=== PATIENT | female | born 1970 | race Caucasian/White ===

== ENCOUNTER 2019-01-26 19:24 | Emergency (ER) | payer MEDICARE ==
[~2019-01-26 19:24] MED LIST: ISOVUE-370 76%-LOCM 1 ML ONE
--- NOTE | 2019-01-26 19:50 | RAD ---
TWO VIEW CHEST: 01/26/19 HISTORY: Chest pain. Lung gordon are clear. Heart and mediastinum unremarkable. IMPRESSION: No acute findings. POS: [facility]
[2019-01-26 19:59] LABS: #Basophils 0.1 thou/uL (0.0-0.2); #Eosinphils 0.2 thou/uL (0.0-0.7); #Lymphocytes 2.4 thou/uL (1.20-3.40); #Monocytes 0.5 thou/uL (0.11-0.59); #Neutrophils 5.5 thou/uL (1.40-6.50); %Basophils 0.7 % (0.0-1.0); %Eosinophils 2.6 % (0.0-10.0); %Lymphocytes 28.1 % (21.0-51.0); %Monocytes 5.3 % (0.0-10.0); %Neutrophils 63.4 % (42.0-75.0); Hemoglobin 13.2 g/dL (12.0-16.0); Mean Corpuscular HGB CONC 32.7 g/dL (32.0-36.0); Mean Corpuscular Hemoglobin 31.2 pg (27.0-31.0); Mean Corpuscular Volume 95.4 fL (78.0-98.0); Mean Platelet Volume 9.6 fL (7.4-10.4); Platelet Count 264 thou/uL (130-400); Red Blood Cell (RBC) Count 4.23 mill/uL (4.20-5.40); White Blood Cell (WBC) Count 8.7 thou/uL (4.8-10.8)
[2019-01-26 20:19] LABS: ALT (SGPT) 29 U/L (8-55); AST (SGOT) 23 U/L (5-34); Alkaline Phosphatase 124 U/L (40-150); Anion Gap 14 mmol/L (10-20); BUN (Urea Nitrogen) 13 mg/dL (7.0-18.7); Bilirubin, Total 0.6 mg/dL (0.2-1.2); Calc. Creatinine Clearance 0 mL/min (70-130); Calcium 9.8 mg/dL (7.8-10.44); Carbon Dioxide 20 mmol/L (22-29); Chloride 108 mmol/L (98-107); Estimated GFR-MDRD 86; Globulin 2.7 g/dL (2.4-3.5); Glucose 92 mg/dL (70-105); Potassium 3.2 mmol/L (3.5-5.1); Protein, Total 6.7 g/dL (6.0-8.3); Sodium 139 mmol/L (136-145)
[2019-01-26] MEDS ORDERED: Ondansetron PF 4 MG/2 ML Vial ONE (22:36)
[2019-01-26] MEDS ORDERED: Mag-Al 1200 mg/1200 mg/30 ML UDCUP ONE (22:36)
[2019-01-26] MEDS ORDERED: Pantoprazole 40 MG VIAL ONE (22:36)
[2019-01-26] MEDS ORDERED: Lidocaine Viscous Sol 2% 15 ml UD Cup ONE (22:36)
--- NOTE | 2019-01-26 23:17 | CT ---
CTA AORTOGRAM CHEST AND ABDOMEN WITH CONTRAST 01/26/19 Multiple axial tomograms obtained through chest and abdomen following aortogram protocol from the aor tic arch through the aortic bifurcation with arterial phase enhancement. Multiplanar reconstructions and 3D postprocessing performed. INDICATIONS: Abdominal pain and chest pain. Back pain. Assess for aortic dissection. The thoracic aorta and the abdominal aorta are both normal caliber. There is no evidence of aortic di ssection or aneurysmal dilatation. Thoracic branches appear unremarkable including celiac artery, sup erior mesenteric artery, and renal arteries. Aortic bifurcation appears normal. The pulmonary arteries are opacified and there is no evidence of proximal pulmonary embolus. The lung gordon are clear. No infiltrate identified. Calcified granuloma in the anterior mid right briana ng. Liver, spleen, pancreas, and kidneys unremarkable. Visualized bowel loops unremarkable. IMPRESSION: No evidence of thoracic or abdominal aortic aneurysm or dissection. POS: [facility]
[2019-01-27] MEDS ORDERED: Potassium Chloride 20 MEQ TAB ONE (00:03)
== END 2019-01-27 00:16 | disposition home or self-care (01) ==
LOC: ERS 19:24
DX: R10.9 Unspecified abdominal pain (principal); M54.9 Dorsalgia, unspecified; F31.9 Bipolar disorder, unspecified; M19.90 Unspecified osteoarthritis, unspecified site; J45.909 Unspecified asthma, uncomplicated; Z79.899 Other long term (current) drug therapy
CPT/HCPCS: 36415; 71046; 71275; 80053; 83690; 84484; 85025; 93005; 96361; 96372; 96374; 96375; C9113; J0500; J2405; Q9966

== ENCOUNTER 2019-04-01 09:13 | Observation (INO) | payer MEDICARE ==
--- NOTE | 2019-04-01 10:49 | RAD ---
Exam: Chest one view HISTORY:Chest pain Comparison: 01/26/2019 FINDINGS: Cardiac silhouette: Normal Pulmonary vessels: Normal Costophrenic angles: Clear LUNGS: No masses or consolidation. Pneumothorax: None Osseous abnormalities: None IMPRESSION: No acute cardiopulmonary process.
[2019-04-01 10:51] LABS: #Basophils 0.1 thou/uL (0.0-0.2); #Eosinphils 0.3 thou/uL (0.0-0.7); #Lymphocytes 2.3 thou/uL (1.20-3.40); #Monocytes 0.5 thou/uL (0.11-0.59); #Neutrophils 5.1 thou/uL (1.40-6.50); %Basophils 0.8 % (0.0-1.0); %Eosinophils 3.3 % (0.0-10.0); %Lymphocytes 28.4 % (21.0-51.0); %Neutrophils 61.5 % (42.0-75.0); Hemoglobin 12.7 g/dL (12.0-16.0); Mean Corpuscular Volume 94.3 fL (78.0-98.0); Mean Platelet Volume 9.5 fL (7.4-10.4); Platelet Count 250 thou/uL (130-400); RBC Distribution Width 11.2 % (11.5-14.5); Red Blood Cell (RBC) Count 3.97 mill/uL (4.20-5.40); White Blood Cell (WBC) Count 8.2 thou/uL (4.8-10.8)
[2019-04-01 11:19] LABS: ALT (SGPT) 39 U/L (8-55); AST (SGOT) 30 U/L (5-34); Alkaline Phosphatase 89 U/L (40-150); Anion Gap 17 mmol/L (10-20); BUN (Urea Nitrogen) 10 mg/dL (7.0-18.7); CK (CPK) 31 U/L (29-168); Calc. Creatinine Clearance 0 mL/min (70-130); Calcium 9.9 mg/dL (7.8-10.44); Carbon Dioxide 17 mmol/L (22-29); Chloride 107 mmol/L (98-107); Estimated GFR-MDRD Greater than 90; Globulin 2.7 g/dL (2.4-3.5); Glucose 74 mg/dL (70-105); Lipase 7 U/L (8-78); Potassium 3.6 mmol/L (3.5-5.1); Protein, Total 6.7 g/dL (6.0-8.3); Sodium 137 mmol/L (136-145)
[2019-04-01] MEDS ORDERED: Ondansetron PF 4 MG/2 ML Vial ONE (13:03)
[2019-04-01] MEDS ORDERED: Ondansetron ODT 4 MG TAB ONE (13:04)
[2019-04-01] MEDS ORDERED: Lidocaine Viscous Sol 2% 15 ml UD Cup ONE (13:04)
[2019-04-01] MEDS ORDERED: Mag-Al 1200 mg/1200 mg/30 ML UDCUP ONE (13:04)
[2019-04-01] MEDS ORDERED: HYDROcodone/Acetaminophen 5/325 mg Tablet PO PRN ×2 (14:15)
[2019-04-01] MEDS ORDERED: Ondansetron ODT 4 MG TAB SL PRN (14:15)
[2019-04-01] MEDS ORDERED: Acetaminophen 325 MG TAB PO PRN (14:15)
[2019-04-01] MEDS ORDERED: Ondansetron PF 4 MG/2 ML Vial IVP PRN (14:15)
[2019-04-01] MEDS ORDERED: Sodium Chloride 0.9% 1,000 ML IV SCH (14:15)
[2019-04-01] MEDS ORDERED: Acetaminophen 500 MG TAB ONE (14:39)
[2019-04-01 16:17] LABS: Troponin I Less than 0.010 ng/mL (< 0.028)
[2019-04-01 19:32] LABS: Troponin I Less than 0.010 ng/mL (< 0.028)
[2019-04-01] MEDS ORDERED: traMADol HCl 50 MG TAB PO SCH (20:45)
[2019-04-01] MEDS ORDERED: Sodium Chloride 0.9% 250 ML 250 ML IVPB SCH (22:00)
[2019-04-01] MEDS ORDERED: Gabapentin 300 MG CAP PO SCH (22:45)
[2019-04-01 23:32] LABS: Hemoglobin 10.5 g/dL (12.0-16.0)
[2019-04-02] MEDS ORDERED: Acetaminophen 650 MG Suppository PR PRN (04:34)
[2019-04-02] MEDS ORDERED: Pantoprazole 40 MG VIAL IVP SCH ×3 (04:45→21:00)
[2019-04-02] MEDS ORDERED: traMADol HCl 50 MG TAB PO SCH (04:45)
[2019-04-02] MEDS ORDERED: Sodium Chloride 0.9% (PF) 10 ML VIAL FS PRN ×3 (04:46→14:46)
[2019-04-02 05:11] LABS: Hemoglobin 10.8 g/dL (12.0-16.0)
[2019-04-02] MEDS: Ondansetron PF 4 MG/2 ML Vial IVP PRN ×2 (05:21→11:51)
[2019-04-02] MEDS: Sodium Chloride 0.9% 1,000 ML IV SCH ×2 (05:25→14:43)
--- NOTE | 2019-04-02 05:26 | HP ---
CHIEF COMPLAINT: Chest pain. HISTORY OF PRESENT ILLNESS: Ms. David is a 48-year-old woman, who presents complaining of anterior chest pain described as a pressure. She reports having pain up into her neck and states that pain in her neck has actually been there for approximately 1 week. She reports having epigastric discomfort as well on and off for the last few days and has noted dark blood mixed in with her stools. She last had a blood-tinged stool yesterday. Denies having any hematemesis. Does report feeling nauseated. She expressed significant concern over her generalized weakness for the last week. She states she has lost a significant amount of weight. She is status post a gastric bypass in summer and states that she has had continual weight loss even up until now. She is unable to quantify how much weight she lost initially following surgery and more recently. The patient was scheduled to undergo an upper endoscopy and colonoscopy to further assess the GI bleeding, however, was noted to be bradycardic with her heart rate in the 40s. Therefore, the procedure was canceled and she was referred to the emergency department given her symptoms. Per patient, she has been told in the past that she had diastolic heart failure. REVIEW OF SYSTEMS: The patient reports having issues with generalized weakness and fatigue. She also reports shortness of breath with exertion. Denies having any recent fevers, chills, or sweats. No cough or hemoptysis. She does have increased chest pressure with deep inspiration. Denies having any diarrhea or constipation. No straining with her bowel movements. No urinary symptoms. All other review of systems are negative. ALLERGIES: 1. IODINE CONTRAST. 2. SULFAMETHOXAZOLE. 3. TRIMETHOPRIM. CURRENT MEDICATIONS: 1. Gabapentin. 2. Fluoxetine. 3. Trazodone. 4. Meloxicam. 5. Bupropion. PAST MEDICAL HISTORY: 1. Fibromyalgia. 2. Osteoarthritis. 3. Degenerative disk disease. 4. disease. 5. Asthma. 6. Diastolic heart failure. 7. Bipolar. PAST SURGICAL HISTORY: 1. Gastric bypass in 05/2018. 2. Cholecystectomy. 3. Hysterectomy. 4. Tonsillectomy. SOCIAL HISTORY: The patient denies any alcohol use or illicit drug use. She does not smoke. PHYSICAL EXAMINATION: GENERAL: The patient appears thin, pale, and in no acute distress. Well developed. VITAL SIGNS: Temperature 98.8, pulse 75, respirations 16, O2 saturation 96% on room air, and blood pressure 98/57. HEENT: Normocephalic and atraumatic. Pupils are equal, round, and reactive to light. Sclerae without icterus. Oropharynx is clear. NECK: Supple. No tenderness to palpation. No neck pain at present. LUNGS: Clear to auscultation bilaterally. No chest wall abnormalities. No tenderness with palpation over chest anteriorly or posteriorly. Reports mild discomfort with deep inspiration. CARDIAC: Regular rate and rhythm. ABDOMEN: Soft with epigastric discomfort on palpation. No guarding or rigidity. No palpable masses. No renal angle tenderness. Nondistended. EXTREMITIES: No lower leg edema. No swelling or calf tenderness. NEUROLOGIC: Alert and oriented x3. No neuro deficits. SKIN: Pale, warm, and dry. No rash or jaundice. LABORATORY DATA: White blood count 8.2, hemoglobin 12.7, hematocrit 37.4, and platelets 250. Sodium 137, potassium 3.6, BUN 10, creatinine 0.66, GFR greater than 90, glucose 74, calcium 9.9, total bilirubin 1, AST 30, ALT 39, and alkaline phosphatase 89. CK 31. Troponin I negative x3. Total protein 6.7, albumin 4.0, and lipase 7. IMAGING DATA: Chest x-ray, 04/01/2019. No acute cardiopulmonary process. Of note, the patient did undergo CT aortic dissection protocol when presenting with abdominal pain and chest pain back in 12/2018. At that time, she had normal-sized caliber of the abdominal aorta and thoracic aorta. IMPRESSION AND PLAN: Ms. David is a very pleasant 48-year-old woman, being admitted for management of the following; 1. Chest pain/epigastric pain. The patient with what she describes as chest pressure that is not reproducible with palpation and epigastric pain as well as neck pain. Her symptoms have been intermittent for the last week, and she has had generalized weakness and fatigue with complaints of dark blood mixed in with her stools. She also has had persistent weight loss, though unable to clearly quantify. Laboratory studies are unremarkable. Hemoglobin is normal at 12.7. LFTs and lipase are normal. Troponins negative x3. She underwent an ECG, which was normal. I have added on a D-dimer to rule out possibility of a pulmonary embolism. If positive, we will request a CT angiogram of her chest. Otherwise, consult has been placed to Dr. Mcmanus, given the degree of her symptoms for further recommendation. The patient was to undergo endoscopic procedures, but canceled due to bradycardia. Her heart rate is improved at present. 2. Bradycardia. The patient states she has not been told in the past that she had any type of arrhythmias or issues with slow heart rate. As mentioned above, cardiac enzymes negative. Chest x-ray unremarkable. For Day Team to decide if echocardiogram is necessary. No indication that her discomfort is cardiac in nature. 3. Fibromyalgia. Resume home medications. 4. Gastroesophageal reflux disease. Resume Protonix. 5. Deep venous thrombosis prophylaxis with mechanical SCDs only. 6. Full code status. Surrogate decision maker is her son, Jason David. The patient's case was discussed with Dr. Conte, who agrees with plan of care as described above. Job ID: [id number]
[2019-04-02] MEDS: Ondansetron ODT 4 MG TAB PO PRN (06:13)
[2019-04-02] MEDS: Acetaminophen 325 MG TAB PO PRN ×2 (06:14→20:16)
[2019-04-02] MEDS: Gabapentin 300 MG CAP PO SCH ×3 (08:31→20:15)
[2019-04-02] MEDS: FLUoxetine HCl 20 MG CAP PO SCH (08:31)
[2019-04-02] MEDS: Bupropion 150 MG XL TAB PO SCH (08:31)
[2019-04-02] MEDS: Morphine 2 MG/ML SYRINGE SLOW IVP PRN ×2 (11:51→17:07)
[2019-04-02] MEDS: traMADol HCl 50 MG TAB PO PRN ×2 (12:47→20:16)
[2019-04-02 13:35] VITALS: BMI 20.7
--- NOTE | 2019-04-02 15:50 | PDOC.PN ---
- Subjective Encounter Start Date: 04/02/19 Encounter Start Time: 15:49 Patient lying in bed, she was feeling dizzy while walking back from the bathroom and needed to be helped to the bed. She states she feels awful and has not felt right in quite some time. GI and Cardiology following - Objective Resuscitation Status - Order Detail: 04/02/19 04:34 Resuscitation Status Routine Co-Sign Provider: Resuscitation Status: FULL: Full Resuscitation MAR Reviewed: Yes Vital Signs & Weight: Vital Signs (12 hours) Temp Pulse Resp BP BP Pulse Ox 04/02/19 12:11 97.3 F L 46 L 18 129/61 100 04/02/19 08:30 97.7 F 52 L 16 113/58 L 99 04/02/19 04:22 97.6 F 52 L 12 98/55 L 99 Weight Admit Weight 132 lb 3.2 oz Weight 132 lb 3.2 oz I&O: 04/01/19 04/02/19 04/03/19 06:59 06:59 06:59 Intake Total 1322 Output Total 400 300 Balance 922 -300 Result Diagrams: 04/02/19 05:04 04/01/19 10:34 Radiology Reviewed by me: Yes EKG Reviewed by me: Yes Phys Exam - Physical Examination Appears weak HEENT: moist MMs, oral pharynx no lesions Neck: supple Respiratory: no wheezing, clear to auscultation bilateral Cardiovascular: RRR, no significant murmur Gastrointestinal: soft, positive bowel sounds Musculoskeletal: no edema, pulses present Neurological: non-focal, moves all 4 limbs Lymphatic: no nodes Psychiatric: A&O x 3 Deviation from normal: Appears anxious at times Skin: normal turgor, cap refill <2 seconds Dx/Plan (1) Epigastric pain Code(s): R10.13 - EPIGASTRIC PAIN Status: Acute (2) Bradycardia Code(s): R00.1 - BRADYCARDIA, UNSPECIFIED Status: Acute (3) Fibromyalgia Status: Acute (4) GERD (gastroesophageal reflux disease) Code(s): K21.9 - GASTRO-ESOPHAGEAL REFLUX DISEASE WITHOUT ESOPHAGITIS Status: Acute (5) Diastolic heart failure Code(s): I50.30 - UNSPECIFIED DIASTOLIC (CONGESTIVE) HEART FAILURE Status: Acute - Plan cont current plan of care * GI and cardiology services following * Continue symptomatic and conservative care * Await echo * Monitor CBC and BMP, H&H stable * EKG showing sinus, Troponin negative x3 * Await EGD and colonoscopy
--- NOTE | 2019-04-02 17:02 | CON ---
DATE OF CONSULTATION: 04/02/2019 INDICATION FOR CONSULTATION: A 48-year-old female with bradycardia, somewhat symptomatic. Also, history of some chest discomfort. HISTORY OF PRESENT ILLNESS: This is a very pleasant 48-year-old female, who underwent a gastric bypass procedure with a Desi-en-Y about a year ago back in I believe she states July perhaps, I assume at least a year ago. She says she has lost over 140 pounds. Since that time, she has been feeling fatigued and weak. She has also had a workup in [place] in July 2018 and was told that she had diastolic heart failure. She has complained of some shortness of breath for about 2 years. She had a stress test in July, which apparently was unremarkable. She presented to the hospital after she complains of some abdominal pain. She has had some dark and bloody stools. Her hemoglobin has slightly decreased when she arrived was 12.7 now down to 10.8, but she has had no bowel movement since being in the hospital. She does have fibromyalgia and also has what she describes as being dysfunctional memory loss. She also has B12 deficiency. She has been followed by GI. She was supposed to have an endoscopy, I believe yesterday and on the way to the office, she noticed that she was not feeling well. She actually did arrive to the office, but the endoscopy was not performed, since she was bradycardic and heart rate was in the 40s and she was referred to the emergency room. At this time, she is feeling somewhat better, but the telemetry has showed heart rates in the 40s to 60s. At this time, her heart rates in the 60s and she remains relatively asymptomatic. She has had no episodes of syncope. She does complain of some left-sided neck pain, but did not have any specific chest pain. She does have epigastric discomfort. Her EKG shows a sinus rhythm with bradycardia with some T-wave inversions in V1 and V2, but otherwise cardiac enzymes are unremarkable. PAST MEDICAL HISTORY: Significant for the gastric bypass surgery, history of fibromyalgia, osteoarthritis, degenerative disk disease, and history of COPD in the form of asthma. She has a bipolar disorder. She has had a cholecystectomy, hysterectomy, and tonsillectomy. SOCIAL HISTORY: There is no history of alcohol or tobacco abuse. She lives with her son. She moved here about a year ago from [place]. ALLERGIES: SHE IS ALLERGIC TO IODINE, SULFAMETHOXAZOLE, AND TRIMETHOPRIM. MEDICATIONS: Prior to admission include; 1. Gabapentin. 2. Fluoxetine. 3. Trazodone. 4. Meloxicam. 5. Bupropion. REVIEW OF SYSTEMS: A 12-point review of systems is unremarkable except what is noted in the history of the present illness. She does complain of some abdominal discomfort. She has had some shortness of breath with exertion. She has had no other significant problems except the dark stools and some with some what she describes perhaps being some blood in the stools. No diarrhea. She has had no complaints. No syncope. No seizures. PHYSICAL EXAMINATION: GENERAL: Reveals a well-developed, well-nourished, somewhat pale female. She is in no acute distress. She is alert and oriented. VITAL SIGNS: Her blood pressure was 129/61, respiratory rate 18, heart rates anywhere between the 40s to 60s and shows a sinus bradycardia or either a sinus rhythm, when the heart rate is in the 60s, some nonspecific changes were noted. She is afebrile. HEENT: Shows head to be normocephalic and atraumatic. Carotid pulses are present without any bruits. CHEST: Clear to auscultation without rales, rhonchi, or wheezing. CARDIOVASCULAR: Reveals a regular rate and rhythm. There were no gross murmurs noted. No heaves or thrills. GI: Abdominal exam, she does have some tenderness in the epigastric area. A very small well-healed incision after her Desi-en-Y procedure was performed. Positive bowel sounds are present. EXTREMITIES: Show no clubbing, cyanosis, or edema. Pedal pulses are present. NEUROLOGIC: She appears to be intact. I do not elicit any gross focal motor deficits. SKIN: Warm and dry. LABORATORY DATA: Shows a hemoglobin of 12.7 on admission, decreased down to 10.8. This may be due to volume and dilution. Her hematocrit was 37, now decreased down to 32. Her WBC is 8.2, Potassium is 3.6, BUN 10, and creatinine 0.66. Cardiac enzymes are negative. IMPRESSION AND PLAN: 1. Bradycardia, which may be symptomatic, but no episodes of syncope. We will continue to monitor her. She is not on any particular medications that would make her be bradycardic. If the heart rate is under reasonable control during her hospital admission, she may need to have a monitor placed, eventually may need to have a pacemaker insertion , but this time it appears to be in a sinus rhythm, just sometimes sinus bradycardia. There is no associated hypotension associated with bradycardia that I can determine. We will continue to monitor. 2. History of bipolar disorder. This will be dealt with by the primary care service. 3. Weight loss. After a Desi-en-Y procedure for weight reduction and also some dark stools associated with abdominal discomfort. She will see the flow machine operator, eventually need to undergo a colonoscopy. 4. Some history of diastolic heart failure. The echocardiogram was performed is still pending. We will review that earlier today and further recommendations may depend on the evaluation of the echocardiogram. 5. History of asthma in the past. She appears to be stable at this time. 6. Bipolar disorder. Again, will be dealt with by the primary care service. We will be more than happy to continue to follow the patient with you. Should she have any significant pauses or continues severe bradycardia, then she eventually may need to undergo pacemaker insertion. At this time she appears to be relatively stable. We will continue to follow her. Job ID: [id number] MTDD
[2019-04-02] MEDS: Pantoprazole 40 MG VIAL IVP SCH (20:19)
--- NOTE | 2019-04-02 21:14 | CON ---
DATE OF CONSULTATION: 04/02/2019 CONSULTING PROVIDER: INEZ Velez REASON FOR CONSULTATION: Epigastric pain, melena, and anemia. HISTORY OF PRESENT ILLNESS: The patient is a 48-year-old female with past medical history of fibromyalgia, osteoarthritis, degenerative joint disease, asthma, bipolar disorder, diastolic heart failure, GERD, and Meniere disease, presenting with complaints of epigastric pain and blood in her stools. She states that over the last 8 to 9 months, she has been having increased midepigastric/right upper quadrant abdominal pain that appears shortly after her Desi-en-Y gastric bypass surgery. The pain is characterized as a throbbing/aching/cramping type sensation, is intermittent, but will occur almost daily, will radiate straight through her mid back and reach a severity of 6 to 7/10. Her pain is worse with eating solids ( not liquids) and consumption of fried, sugary, dairy products or tomato based products. The pain is better with the use of acid suppression medications, but only minimally so. This epigastric pain has been associated with increased nausea, vomiting, having approximately 3 to 4 episodes per week of nonbloody emesis as well as increased weight loss and chest pain with chest pressure characterized as pressure in the mid substernal chest that will radiate to both the left and right chest and into her left upper neck. The nausea and vomiting will occur within 2 to 3 minutes of her eating and will resolve shortly after actual emesis. Lastly, she also complains of increased hematochezia characterized as bright red blood per rectum that has been occurring intermittently for over the last month. The bleeding will not occur with every time that she has a bowel movement, but when the bleeding does occur, it is present on both the toilet paper and in the toilet without any additional pain associated with it. During her prep for the most recent planned colonoscopy, she did notice the appearance of more bright red blood per rectum at that time. Otherwise, she denies any fevers, chills, odynophagia, dysphagia. Of note, the patient was recently evaluated in the outpatient GI clinic for the similar complaints of midepigastric abdominal pain and hematochezia; for which, she was scheduled for both an EGD and colonoscopy. However, on the day of the colonoscopy, she was noted to have significant bradycardia with her heart rate in the low 40s. With the new onset of this particular heart rhythm, she was subsequently sent to the ER for further evaluation. REVIEW OF SYSTEMS: A 10-category review of systems was obtained with all responses negative except for the pertinent positives as listed in HPI. PAST MEDICAL HISTORY: As per HPI. PAST SURGICAL HISTORY: Gastric bypass in May 2018, cholecystectomy, hysterectomy and tonsillectomy. FAMILY HISTORY: Denies any GI malignancies, although she does endorse a personal history of colonic polyps. SOCIAL HISTORY: Denies any tobacco, alcohol, or illicit drug use. OUTPATIENT MEDICATIONS: Reviewed. ALLERGIES: IODINE CONTRAST, SULFAMETHOXAZOLE/TRIMETHOPRIM. PHYSICAL EXAMINATION: VITAL SIGNS: Temperature 97.3, pulse 46, blood pressure 129/61, respiratory rate 18, saturating 100% on room air. GENERAL: The patient was lying in bed, in no acute distress. Alert and oriented x4. HEENT/NECK: Supple. No JVD or scleral icterus noted. Normocephalic and atraumatic. CARDIOVASCULAR: Bradycardic rate, but regular rhythm. No discernible murmurs, gallops, or rubs. RESPIRATORY: Clear to auscultation bilaterally with no discernible wheezes or rales. ABDOMEN: Normoactive bowel sounds. Soft, tenderness to palpation in the midepigastric, right upper quadrant and periumbilical regions. EXTREMITIES: No cyanosis, clubbing, or edema. LABORATORY DATA: CBC with a white blood cell count of 8.2, hemoglobin 10.8, hematocrit 32.3, platelets 250. Chemistry with a sodium of 137, potassium 3.6, chloride 107, CO2 of 17, BUN 10, creatinine 0.66, glucose 74, AST 30, ALT 39, alkaline phosphatase 89, total bilirubin 1.0, lipase 7. IMAGING DATA: CT of the chest dissection protocol was obtained on January 26, 2019, where it did not show any evidence of aortic dissection or aneurysmal dilatation. There was also no evidence of pulmonary embolus, infiltrate or abnormalities of the visualized liver, spleen, pancreas and kidneys. ASSESSMENT AND PLAN: The patient is a 48-year-old female with past medical history of fibromyalgia, osteoarthritis, degenerative joint disease, asthma, bipolar disorder, diastolic heart failure, gastroesophageal reflux disease and Meniere disease, presenting with epigastric abdominal pain, gastrointestinal bleeding, and anemia. Midepigastric abdominal pain: The patient is presenting with an 8 to 9 month history of increased midepigastric/right upper quadrant abdominal pain that has been present essentially after her gastric bypass in May of 2018. The pain is characterized as a throbbing/aching/cramping type sensation with radiation straight through to her mid back. Given this history, it is mildly concerning for the presence of pancreatitis, although her lipase is normal on this admission, making that diagnosis less likely (unless chronic pancreatitis), however when coupling this epigastric pain with a history of a gastric bypass and melenic type stools, there is a concern for an anastomotic ulcer within the gastric pouch itself and/or possible surgical complication. Differential could also include esophagitis, gastroesophageal reflux disease, gastritis, peptic ulcer disease, surgical complication and/or gastrointestinal neoplasm (much less likely given recent instrumentation). Recommendations: 1. We will increase the patient's proton pump inhibitor to 40 mg twice daily and counseled the patient on standard acid reflux precautions in light of possible GERD. 2. Would continue the patient on a clear liquid diet given that her pain is mostly associated with the ingestion of solid food. 3. I would like to perform an upper endoscopy for further evaluation of this abdominal pain. However, given her recent diagnosis of significant bradycardia , I would like cardiac clearance prior to moving forward with that particular procedure. 4. Would continue with as needed antiemetic control. 5. Pain control per primary team. Hematochezia: The patient is presenting with intermittent bouts of bright red blood per rectum that have been present for the last month, characterized as blood present both on the toilet paper and in the toilet. Upon further questioning, she also endorsed that the blood was primarily coating the stool, making the likelihood of a rectal outlet bleeding source more likely. At this time, the differential could include hemorrhoidal bleeding (more likely), inflammatory bowel disease, stercoral colitis, Ischemic colitis for upper GI bleeding source. Recommendations: 1. Would place the patient on a higher fiber diet/fiber supplementation while in-house to facilitate having a bowel movement and further exacerbation of hemorrhoids. 2. Given her increased epigastric abdominal pain and bleeding, I would like to perform a colonoscopy as she was scheduled for as an outpatient. However, again , I would like cardiac clearance prior to proceeding with this procedure as well. 3. Would continue to trend H and H and transfuse as necessary to maintain an H and H of 7/21. 4. Continue to monitor clinically for signs of active GI bleeding. We will continue to follow. Please call with any questions. Job ID: [id number] MTDD
[2019-04-03] MEDS: traMADol HCl 50 MG TAB PO PRN ×3 (00:57→18:39)
[2019-04-03] MEDS: Bupropion 150 MG XL TAB PO SCH (08:26)
[2019-04-03] MEDS: FLUoxetine HCl 20 MG CAP PO SCH (08:26)
[2019-04-03] MEDS: Pantoprazole 40 MG VIAL IVP SCH ×2 (08:27→20:21)
[2019-04-03] MEDS: Gabapentin 300 MG CAP PO SCH ×3 (08:27→20:17)
[2019-04-03] MEDS ORDERED: GoLYTELY 4,000 ml Bottle PO SCH ×2 (10:15→17:00)
[2019-04-03] MEDS: Ondansetron ODT 4 MG TAB PO PRN (12:52)
--- NOTE | 2019-04-03 14:56 | PDOC.PN ---
- Subjective Encounter Start Date: 04/03/19 Encounter Start Time: 14:45 Subjective: f/u for ? symptomatic bradycardia with HR's in 60's. Some dizziness when up -: Plan for EGD/colonoscopy 04/04/19. - Objective Resuscitation Status - Order Detail: 04/02/19 04:34 Resuscitation Status Routine Co-Sign Provider: Resuscitation Status: FULL: Full Resuscitation MAR Reviewed: Yes Vital Signs & Weight: Vital Signs (12 hours) Temp Pulse Resp BP BP Pulse Ox 04/03/19 11:21 98.2 F 51 L 15 131/61 15 L 04/03/19 07:43 98 F 56 L 14 110/58 L 98 04/03/19 02:59 97.5 F L 46 L 18 97/54 L 100 Weight Admit Weight 132 lb 3.2 oz Weight 132 lb 3.2 oz I&O: 04/02/19 04/03/19 04/04/19 06:59 06:59 06:59 Intake Total 1322 600 Output Total 400 1500 Balance 922 -900 Result Diagrams: 04/02/19 05:04 04/01/19 10:34 Additional Labs: Laboratory Tests 04/01/19 04/01/19 10:34 23:29 Hgb 12.7 10.5 L Radiology Reviewed by me: Yes (2D echo - EF 60-65%, mild-mod LAE) EKG Reviewed by me: Yes (Tele - SR in 60's) Phys Exam - Physical Examination Constitutional: NAD HEENT: PERRLA, sclera anicteric, oral pharynx no lesions Neck: no nodes, no JVD, supple, full ROM Respiratory: no wheezing, no rales, no rhonchi, clear to auscultation bilateral S1, S2 Cardiovascular: RRR, no significant murmur, no rub, gallop Gastrointestinal: soft, non-tender, no distention, positive bowel sounds Musculoskeletal: no edema, pulses present Neurological: normal sensation, moves all 4 limbs Psychiatric: A&O x 3 Skin: normal turgor, cap refill <2 seconds Dx/Plan (1) Symptomatic bradycardia Code(s): R00.1 - BRADYCARDIA, UNSPECIFIED Status: Suspected Comment: Current HR's in 60's without arrhythmia, continue telemetry monitoring, consider event monitor for outpt (2) Normocytic anemia Code(s): D64.9 - ANEMIA, UNSPECIFIED Status: Chronic Comment: Plan for EGD/ colonoscopy, serial H/H (3) Epigastric pain Code(s): R10.13 - EPIGASTRIC PAIN Status: Chronic Comment: Unclear etiology , plan for EGD in am (4) Fibromyalgia Status: Chronic Comment: Continue Wellbutrin, Prozac and Gabapentin (5) GERD (gastroesophageal reflux disease) Code(s): K21.9 - GASTRO-ESOPHAGEAL REFLUX DISEASE WITHOUT ESOPHAGITIS Status: Chronic Comment: Continue Protonix 40mg IV BID - Plan out of bed/ambulate, DVT proph w/SCDs stable currently -: Continue Protonix 40mg IV BID -: Golytely prep today -: Plan for EGD/colonoscopy in am -: AM lab: H/H * .
--- NOTE | 2019-04-03 18:07 | PRG ---
DATE OF SERVICE: 04/03/2019 REASON FOR CONSULTATION: Epigastric pain, melena, and anemia. SUBJECTIVE: The patient did not experience any acute events or problems overnight. However, this morning she continues to have midepigastric abdominal pain that is unchanged in terms of location or severity. During this admission; however, she has not had any further episodes of hematochezia nor has she had any bowel movement at all. Currently, she denies any nausea, vomiting, fevers, chills, or GI bleeding. OBJECTIVE: VITAL SIGNS: Temperature 98.2, pulse 55, blood pressure 119/59, respiratory rate 16, and saturating 98% on room air. GENERAL: The patient is lying in bed, in no acute distress. Alert and oriented x4. CARDIOVASCULAR: Bradycardic rate, but regular rhythm. RESPIRATORY: Clear to auscultation bilaterally. ABDOMEN: Normoactive bowel sounds. Soft and nondistended. Tenderness to palpation in the midepigastric, right upper quadrant, and periumbilical regions. EXTREMITIES: No cyanosis, clubbing, or edema. LABORATORY DATA: No current studies are available for review. IMAGING DATA: Echocardiogram was performed on April 02, 2019, which showed an ejection fraction visually estimated at 60% to 65%. There was normal right ventricular size and function, but [id number] dilation of the left atrium. Trace mitral regurgitation was present as well as trace tricuspid regurgitation. ASSESSMENT AND PLAN: The patient is a 48-year-old female with past medical history of fibromyalgia, osteoarthritis, degenerative joint disease, asthma, bipolar disorder, diastolic heart failure, gastroesophageal reflux disease, and Meniere disease, presenting with epigastric abdominal pain, gastrointestinal bleeding, and anemia. Midepigastric abdominal pain: The patient is presenting with a longstanding history of increased midepigastric/right upper quadrant abdominal pain after her gastric bypass in May of 2018. At this time, the allergen of her abdominal pain is relatively unknown, but could include anastomotic ulcer within the gastric pouch itself, possible surgical complication, esophagitis, gastroesophageal reflux disease, peptic ulcer disease, or gastrointestinal neoplasm (much less likely). Recommendations; 1. We would continue the patient's proton pump inhibitor of 40 mg twice daily and continue standard acid reflux precautions. 2. Continue clear liquid diet. 3. We will plan on performing an esophagogastroduodenoscopy tomorrow for further evaluation. 4. Continue aggressive antiemetic control. 5. Pain control per primary team. Hematochezia: The patient is presenting with intermittent bouts of bright red blood per rectum that have been present for the last month, although she does also endorse episodes of darker/black-colored stools. At this time, the origin of her bleeding source is relatively unknown with differential including either an upper or lower gastrointestinal tract bleeding source. Recommendations; 1. We would perform colonoscopy tomorrow in an attempt to elucidate her gastrointestinal bleeding in addition to the esophagogastroduodenoscopy as above. 2. We would continue to trend H and H and transfuse as necessary to maintain an H and H of 7/21. 3. Continue to monitor clinically for signs of active gastrointestinal bleeding. We will continue to follow. Please call with any questions. Job ID: [id number]
[2019-04-03] MEDS: Ondansetron PF 4 MG/2 ML Vial IVP PRN (18:39)
--- NOTE | 2019-04-03 21:56 | PDOC.CTH ---
Cardiology Progress Note - Subjective Pt. seen and eval. by me. She is having diarhea whuile prepping for endoscopy tomorrow...drinking GoLytely. Still some dizziness at time. There is no specific corelation to the dizzy episodes and the heart rate. - Objective Vital Signs Temp Pulse Resp BP Pulse Ox 04/03/19 20:12 50 L 16 141/70 H 100 04/03/19 18:56 97.4 F L 54 L 14 133/65 100 04/03/19 15:37 98.2 F 55 L 16 119/59 L 98 04/03/19 11:21 98.2 F 51 L 15 131/61 15 L Admit Weight 132 lb 3.2 oz Weight 132 lb 3.2 oz 04/02/19 04/03/19 04/04/19 06:59 06:59 06:59 Intake Total 1322 600 500 Output Total 400 1500 400 Balance 922 -900 100 - Physical Examination General/Neuro: alert & oriented x3 Neck: no JVD present Lungs: CTA Heart: RRR Abdomen: soft - Labs Result Diagrams: 04/02/19 05:04 04/01/19 10:34 Troponin/CKMB Troponin I Less than 0.010 ng/mL (< 0.028) 04/01/19 18:58 - Assessment/Plan 1. Bradycardia: This is sinus and no associated significant dizziness. no indication for a pacemaker at this time. We could consider a LINQ ( implantable loop recorder ). 2. Fatigue/weakness. This is likely due to the weight loss after her bariatric surgery. 3. Fibromyalgia. 4. Abd. pain. She is scheduled for endoscopy tomorrow.
[2019-04-04] MEDS: Acetaminophen 325 MG TAB PO PRN (04:12)
[2019-04-04 04:38] LABS: Hemoglobin 10.8 g/dL (12.0-16.0); Platelet Count 172 thou/uL (130-400)
[2019-04-04] MEDS: Pantoprazole 40 MG VIAL IVP SCH (09:25)
[2019-04-04] MEDS: traMADol HCl 50 MG TAB PO PRN (09:25)
[2019-04-04] MEDS: Gabapentin 300 MG CAP PO SCH (09:25)
[2019-04-04] MEDS: FLUoxetine HCl 20 MG CAP PO SCH (09:25)
[2019-04-04] MEDS: Ondansetron ODT 4 MG TAB PO PRN (09:25)
[2019-04-04] MEDS: Bupropion 150 MG XL TAB PO SCH (09:25)
--- NOTE | 2019-04-04 10:57 | PDOC.CTH ---
Cardiology Progress Note - Subjective The pt seen and examined. No overnight events. No cardiac complaints. - Objective Vital Signs Temp Pulse Resp BP BP Pulse Ox 04/04/19 09:16 97.6 F 51 L 18 113/53 L 99 04/04/19 05:58 52 L 94/50 L 04/04/19 04:10 98 F 60 18 91/50 L 98 04/03/19 23:35 97.3 F L 52 L 15 127/60 100 Admit Weight 132 lb 3.2 oz Weight 137 lb 14.4 oz 04/03/19 04/04/19 04/05/19 06:59 06:59 06:59 Intake Total 600 3500 Output Total 1500 400 Balance -900 3100 - Physical Examination General/Neuro: alert & oriented x3 Neck: no JVD present Lungs: CTA Heart: RRR Abdomen: soft Extremities: other: (No edema) - Telemetry Telemetry Rhythm: SR - Labs Result Diagrams: 04/04/19 04:13 04/01/19 10:34 Troponin/CKMB Troponin I Less than 0.010 ng/mL (< 0.028) 04/01/19 18:58 - Assessment/Plan 1. Bradycardia: This is sinus and no associated significant dizziness. no indication for a pacemaker at this time. The pt will d/c home with 30-day EVR before possible LINQ (implantable loop recorder). 2. Fatigue/weakness. This is likely due to the weight loss after her bariatric surgery. 3. Fibromyalgia. 4. Abd. pain with s/p EGD and colonoscopy on 04/04/2019 MARCO reviewed * From Cardiac standpoint, the pt is stable to d/c home with 30 days EVR monitor. * The pt will f/u with Dr Lee' office after she completes 30 days EVR. Review of Systems - Review of Systems Constitutional: reports: no symptoms reported EENTM: reports: no symptoms reported Respiratory: reports: no symptoms reported Cardiac (ROS): reports: no symptoms reported ABD/GI: reports: no symptoms reported : reports: no symptoms reported Musculoskeletal: reports: no symptoms reported
--- NOTE | 2019-04-04 12:17 | OP ---
DATE OF PROCEDURE: 04/04/2019 PROCEDURE PERFORMED: Esophagogastroduodenoscopy with biopsy, colonoscopy with polypectomy, biopsy and control of hemorrhage. INDICATIONS FOR PROCEDURE: Midepigastric abdominal pain, hematochezia, melena. DESCRIPTION OF PROCEDURE: After the risks and benefits of the procedure were explained to the patient including risks of bleeding, infection, perforation, reactions to anesthesia, aspiration and/or pain, informed consent was obtained. The patient was then taken to the endoscopy suite, where a deep sedation was administered via propofol and anesthesia support. Once adequate sedation was achieved, the standard gastroscope was introduced into the mouth with intubation of the esophagus, stomach, and the proximal small intestines with the findings listed below. The patient tolerated this portion of the procedure well with no immediate perioperative complications. Upon conclusion of this phase of the procedure, all equipment was removed from the patient and the bed was rotated 180 degrees in anticipation of the colonoscopy. After a digital rectal examination was performed, the standard colonoscope was introduced into the rectum and advanced to the terminal ileum with some difficulty secondary to redundancy of the colon and tortuosity, but was amenable to manual abdominal pressure to facilitate passage of the scope. The quality of the prep was good with a mild amount of adherent stool that was easily cleared with irrigation and suctioning. The patient tolerated the procedure well with no immediate perioperative complications. Upon conclusion of the colonoscopy, all equipment was removed from the patient and the patient was taken to PACU in satisfactory condition. EGD FINDINGS: Esophagus: Normal-appearing mucosa was seen in the proximal, mid, and distal esophagus. There was no evidence of erosions, ulcerations, mass, lesions, or active/recent bleeding. Stomach: Surgical change associated with a Desi-en-Y gastric bypass was seen upon entry into the stomach with a fairly small gastric pouch. The gastrojejunal anastomosis was clearly visualized and was relatively normal, except for retained surgical jair along one aspect of the anastomosis itself. There was no ulceration or stricture of the anastomosis as it was widely patent and the gastroscope easily traversed the anastomosis itself. There was some mild increased mucosal erythema seen in the gastric pouch itself, but there was no other associated abnormalities. Random biopsies were taken from the gastric pouch and placed in a specimen jar for evaluation. Retroflexion did not reveal any abnormalities. There were no erosions ulcerations, mass, lesions, or active/recent recent bleeding seen in the gastric pouch. Afferent and efferent limbs: Normal-appearing mucosa was seen in both the afferent and efferent duodenal limbs. There was no evidence of erosions, ulcerations, mass, lesions, or active/recent bleeding. IMPRESSION: 1. Surgical change consistent with Desi-en-Y gastric bypass seen. 2. Mild mucosal erythema of the gastric mucosa, status post biopsies. 3. Intact surgical anastomosis with no evidence of stricture or breakdown. 4. No etiology for the patient's abdominal pain was seen during this examination. COLONOSCOPY FINDINGS: Digital rectal exam, small external hemorrhoids were seen on external examination. COLON FINDINGS: Normal-appearing mucosa was seen in the terminal ileum as well as at the ileocecal valve and appendiceal orifice. Normal-appearing mucosa was also seen within the cecum; however, a 1 cm semi-pedunculated polyp was seen in the distal ascending colon and completely removed with snare cautery polypectomy. It was retrieved and placed in a specimen jar for evaluation. The mucosal defect it made was somewhat larger than expected, so a hemoclip x1 was then employed to approximate the mucosal defect with good hemostasis achieved. A 4 mm polyp was seen in the proximal transverse colon and completely removed with snare cautery polypectomy, it was retrieved and placed in a specimen jar for evaluation. Otherwise normal-appearing mucosa was seen in the distal transverse and proximal descending colons. A few small diverticula were seen in the distal descending and sigmoid colons. Otherwise, normal-appearing mucosa was seen in the descending, sigmoid colon, and rectum. Given the relatively normal mucosa within the colon, random colon biopsies were taken throughout the entire colon and placed in a specimen jar for evaluation. Small internal hemorrhoids were seen on the rectal retroflexion. IMPRESSION: 1. 1 cm semi-pedunculated polyp seen in the ascending colon and completely removed with hot snare polypectomy, status post hemoclip placement for possible prophylaxis against post-polypectomy bleed. 2. 4 mm transverse colon polyp, status post hot snare. 3. Mild descending and sigmoid diverticulosis. 4. Internal and external hemorrhoids. 5. The etiology for the patient's abdominal pain or bleeding was not seen during this examination. RECOMMENDATIONS: 1. Would continue to trend H and H and transfuse as necessary to maintain an H and H of 7/21. 2. Continue to monitor clinically for signs of active GI bleeding. 3. Pain control per primary team. 4. We will follow up on the biopsy results with further care guided by pathology report. 5. Would continue PPI b.i.d. given mild improvement in symptoms and would continue to adhere to standard acid reflux precautions. 6. Would place the patient on a full liquid diet given her improvement in symptoms with a liquid diet. 7. We will consider diagnosis of dumping syndrome in this patient with a Desi-en-Y gastric bypass. We will continue to follow. Please call with any questions. Job ID: [id number]
[2019-04-04 12:34] VITALS: BP 119/55; TEMP 98.4
[2019-04-04] MEDS ORDERED: PROPOFOL 200 MG/20 ML VIAL ONE (13:35)
[2019-04-04] MEDS ORDERED: Lidocaine 1% PF 5 ML VIAL ONE (13:35)
--- NOTE | 2019-04-04 14:11 | PDOC.PN ---
- Subjective Encounter Start Date: 04/04/19 Encounter Start Time: 10:00 Subjective: no abd pain now -: no chest pain or palpitations - Objective Resuscitation Status - Order Detail: 04/02/19 04:34 Resuscitation Status Routine Co-Sign Provider: Resuscitation Status: FULL: Full Resuscitation MAR Reviewed: Yes Vital Signs & Weight: Vital Signs (12 hours) Temp Pulse Resp BP BP Pulse Ox 04/04/19 12:05 98.4 F 63 16 119/55 L 98 04/04/19 09:16 97.6 F 51 L 18 113/53 L 99 04/04/19 05:58 52 L 94/50 L 04/04/19 04:10 98 F 60 18 91/50 L 98 Weight Admit Weight 132 lb 3.2 oz Weight 137 lb 14.4 oz I&O: 04/03/19 04/04/19 04/05/19 06:59 06:59 06:59 Intake Total 600 3500 Output Total 1500 400 Balance -900 3100 Result Diagrams: 04/04/19 04:13 04/01/19 10:34 Phys Exam - Physical Examination HEENT: PERRLA, moist MMs Neck: no JVD, supple Respiratory: no wheezing, no rales Cardiovascular: RRR, no significant murmur Gastrointestinal: soft, non-tender, positive bowel sounds Musculoskeletal: no edema, pulses present Neurological: non-focal, moves all 4 limbs Psychiatric: normal affect, A&O x 3 Dx/Plan (1) PUD (peptic ulcer disease) Code(s): K27.9 - PEPTIC ULC, SITE UNSP, UNSP AC OR CHR, W/O HEMOR OR PERF Status: Acute (2) Bradycardia Code(s): R00.1 - BRADYCARDIA, UNSPECIFIED Status: Acute (3) Fibromyalgia Status: Chronic Comment: Continue Wellbutrin, Prozac and Gabapentin (4) GERD (gastroesophageal reflux disease) Code(s): K21.9 - GASTRO-ESOPHAGEAL REFLUX DISEASE WITHOUT ESOPHAGITIS Status: Chronic (5) Normocytic anemia Code(s): D64.9 - ANEMIA, UNSPECIFIED Status: Chronic - Plan hemostable -: may dc home if ok with GI -: has event monitor placed -: to f/u with GI, Cardio as adv, PCP in 1 week -: protonix bid x 30 days. * .
--- NOTE | 2019-04-05 12:43 | DIS ---
DATE OF ADMISSION: 04/01/2019 DATE OF DISCHARGE: 04/04/2019 DISCHARGE DISPOSITION: Home. PRIMARY DISCHARGE DIAGNOSES: 1. Peptic ulcer disease. 2. Symptomatic bradycardia. SECONDARY DISCHARGE DIAGNOSES: 1. Chronic anemia. 2. Gastroesophageal reflux disease. 3. Fibromyalgia. PROCEDURES DONE DURING HOSPITALIZATION: Chest x-ray done showed no acute cardiopulmonary process. Echo with 2D Doppler showed EF of 60% to 65%. Upper endoscopy done by Dr. Marlon Mcmanus, showed surgical change consistent with the Desi-en-Y gastric bypass, mild mucosal erythema of the gastric mucosa, status post biopsies, intact surgical anastomosis with no evidence of stricture or breakdown. Colonoscopy done showed 1 cm semipedunculated polyp in the ascending colon, completely removed with hot snare polypectomy, status post hemoclip placement; 4 mm transverse colon polyp, status post hot snare; mild descending and sigmoid colon diverticulosis; internal and external hemorrhoids. A biopsy of the stomach showed no H. pylori organisms. Ascending colon polypectomy showed tubulovillous adenoma. Transverse colon polyp showed tubular adenoma. No high-grade dysplasia or malignancy was present. H and H 10 and 32, platelet count 172. Troponin x3 negative. DISCHARGE MEDICATIONS: 1. Protonix 40 mg p.o. twice daily for a month. 2. Trazodone 200 mg p.o. at bedtime. 3. Gabapentin 600 mg p.o. three times daily. 4. Fluoxetine 40 mg p.o. daily. 5. Bupropion extended release 300 mg p.o. daily. INPATIENT CONSULTS: 1. Dr. Marlon Mcmanus, for Gastroenterology. 2. Dr. Lee for Cardiology. DISCHARGE PLAN: The patient to follow up with Dr. Mcmanus in 2 weeks and primary care physician in 1 week. BRIEF COURSE DURING HOSPITALIZATION: The patient initially came in with complaints of chest pain and pressure. She had known history of gastric bypass and has had consultation with both Cardiology and Gastroenterology. She was also bradycardic with heart rates dropping into 40s and the patient having some dizziness and weakness associated with it. In view of above history and findings, the patient was admitted to telemetry. Three sets of troponin were negative. The patient's heart rate has been trending in the 40s to 50s. She has had upper and lower endoscopies done with the findings described above. She has been given an event monitor prior to discharge. She will follow up with Dr. Lee in 2 weeks. The patient also needs follow up with Dr. Marlon Mcmanus, in the outpatient setting in 2 weeks for possible further workup of dumping syndrome, if the patient is still having symptoms. She is otherwise hemodynamically stable and is tolerating full-liquid diet at present. She needs to slowly transition herself into solid bariatric diet over the course of 3 to 4 days. Her chest pain is completely resolved. She is ambulating prior to discharge. She is cleared by Cardiology and Gastroenterology prior to discharge. Please see a [id number] documentation for the day of discharge on [employer]. Job ID: [id number] MTDD
== END 2019-04-04 14:48 | disposition home or self-care (01) ==
LOC: ERS 09:13 → 2SW 16:36
PROVIDERS: ADMIT Family Medicine; ATTEND Family Medicine
PROC: 0DB78ZX Excision of Stomach, Pylorus, Via Natural or Artificial Opening Endoscopic, Diagnostic (ICD-10-PCS; principal; 2019-04-04)
PROC: 0DBK8ZX Excision of Ascending Colon, Via Natural or Artificial Opening Endoscopic, Diagnostic (ICD-10-PCS; 2019-04-04)
PROC: 0DBL8ZX Excision of Transverse Colon, Via Natural or Artificial Opening Endoscopic, Diagnostic (ICD-10-PCS; 2019-04-04)
DX: K57.31 Diverticulosis of large intestine without perforation or abscess with bleeding (principal); D12.2 Benign neoplasm of ascending colon; D12.3 Benign neoplasm of transverse colon; K64.4 Residual hemorrhoidal skin tags; K64.8 Other hemorrhoids; K21.9 Gastro-esophageal reflux disease without esophagitis; R07.89 Other chest pain; R00.1 Bradycardia, unspecified; M79.7 Fibromyalgia; M19.90 Unspecified osteoarthritis, unspecified site; F31.9 Bipolar disorder, unspecified; I50.30 Unspecified diastolic (congestive) heart failure; J44.9 Chronic obstructive pulmonary disease, unspecified; D64.9 Anemia, unspecified; Z91.041 Radiographic dye allergy status; Z88.2 Allergy status to sulfonamides; Z79.1 Long term (current) use of non-steroidal anti-inflammatories (NSAID); Z79.899 Other long term (current) drug therapy; Z98.84 Bariatric surgery status
CPT/HCPCS: 43239; 45385; 71045; 80053; 82550; 83690; 84484 ×2; 85014 ×3; 85018 ×3; 85025; 85049; 85379; 86850; 86900; 86901; 88305; 88312; 93005; 93306; 96361 ×2; 96374; 96375; 96376 ×3; 99285; G0378 ×3; 36415; 93010; C9113; J2001; J2270; J2405; J2704; Q0162

== ENCOUNTER 2019-05-07 19:56 | Emergency (ER) | payer MEDICARE ==
[2019-05-07 20:42] LABS: #Basophils 0.1 thou/uL (0.0-0.2); #Eosinphils 0.3 thou/uL (0.0-0.7); #Lymphocytes 2.9 thou/uL (1.20-3.40); #Monocytes 0.4 thou/uL (0.11-0.59); #Neutrophils 3.7 thou/uL (1.40-6.50); %Basophils 0.7 % (0.0-1.0); %Eosinophils 4.2 % (0.0-10.0); %Lymphocytes 39.2 % (21.0-51.0); %Monocytes 5.7 % (0.0-10.0); %Neutrophils 50.2 % (42.0-75.0); Hemoglobin 12.7 g/dL (12.0-16.0); Mean Corpuscular Hemoglobin 32.3 pg (27.0-31.0); Platelet Count 211 thou/uL (130-400); RBC Distribution Width 11.1 % (11.5-14.5); Red Blood Cell (RBC) Count 3.92 mill/uL (4.20-5.40); White Blood Cell (WBC) Count 7.3 thou/uL (4.8-10.8)
[2019-05-07] MEDS ORDERED: Ketorolac Tromethamine 30 MG/ML VIAL ONE (20:56)
[2019-05-07 21:03] LABS: ALT (SGPT) 147 U/L (8-55); AST (SGOT) 94 U/L (5-34); Albumin 4.4 g/dL (3.5-5.0); Alkaline Phosphatase 128 U/L (40-150); Anion Gap 15 mmol/L (10-20); BUN (Urea Nitrogen) 18 mg/dL (7.0-18.7); Bilirubin, Total 0.9 mg/dL (0.2-1.2); Calc. Creatinine Clearance 0 mL/min (70-130); Carbon Dioxide 23 mmol/L (22-29); Chloride 105 mmol/L (98-107); Estimated GFR-MDRD 89; Globulin 2.7 g/dL (2.4-3.5); Glucose 84 mg/dL (70-105); Lipase 17 U/L (8-78); Potassium 3.6 mmol/L (3.5-5.1); Protein, Total 7.1 g/dL (6.0-8.3); Sodium 139 mmol/L (136-145)
--- NOTE | 2019-05-07 22:59 | CT ---
CT BRAIN NONCONTRAST: DATE: 05/07/2019 HISTORY: 48-year-old female with headache and nausea FINDINGS: There is no evidence of acute intra-axial or extra-axial hemorrhage. There is no midline shift or any other mass effect. There is no extra-axial fluid collection. There is no evidence of obstructive hydrocephalus. Calvarium is intact. There is a left intact-canal wall mastoidectomy. The left mastoid ectomy bowl is grossly clear. The right tympanomastoid cavity and the sphenoid and frontal sinuses, are grossly clear. IMPRESSION: 1. No acute intracranial findings. 2. Status post left canal wall up mastoidectomy.
[2019-05-07] MEDS ORDERED: Metoclopramide HCl 10 MG/2 ML VIAL ONE (23:16)
[2019-05-07 23:34] LABS: Bilirubin Small (Negative); Blood, Urine Small (Negative); Clarity CLEAR (Clear); Glucose, Urine (Dipstick) Negative (Negative); Leukocyte Negative (Negative); Nitrite Negative (Negative); Protein, Urine (Dipstick) Negative (Neg-Trace); Specific Gravity, Urine 1.037 (1.002-1.036); Urobilinogen 0.2 mg/dL (0.2-1.0)
[2019-05-07 23:37] LABS: Bacteria/HPF None Seen HPF (None Seen); Hyaline Casts/LPF 0-3 HYALINE CAST LPF (0-3 Hyaline); Pathc Cast-AUWi Flag 0.27 (0-2.49); Squamous Epithelial 0-3 HPF (0-3)
[2019-05-07 23:58] LABS: Crystals/HPF 2+ CA OXALATE HPF (Negative)
== END 2019-05-08 00:07 | disposition home or self-care (01) ==
LOC: ERS 19:56
DX: R51 Headache (principal); R11.2 Nausea with vomiting, unspecified; R00.1 Bradycardia, unspecified; G43.909 Migraine, unspecified, not intractable, without status migrainosus; J45.909 Unspecified asthma, uncomplicated; M19.90 Unspecified osteoarthritis, unspecified site; F31.81 Bipolar II disorder; I50.30 Unspecified diastolic (congestive) heart failure; Z79.899 Other long term (current) drug therapy
CPT/HCPCS: 70450; 80053; 81003; 81015; 83690; 85025; 87086; 96361; 96365; 96375; J1885; J2765

== ENCOUNTER 2019-07-13 12:57 | Emergency (ER) | payer MEDICARE ==
[2019-07-13] MEDS ORDERED: Ondansetron PF 4 MG/2 ML Vial ONE (13:33)
[2019-07-13 13:35] LABS: #Basophils 0.1 thou/uL (0.0-0.2); #Eosinphils 0.2 thou/uL (0.0-0.7); #Lymphocytes 1.8 thou/uL (1.20-3.40); #Monocytes 0.4 thou/uL (0.11-0.59); %Eosinophils 2.4 % (0.0-10.0); %Lymphocytes 28.6 % (21.0-51.0); %Monocytes 6.6 % (0.0-10.0); %Neutrophils 61.4 % (42.0-75.0); Hemoglobin 13.8 g/dL (12.0-16.0); Mean Corpuscular HGB CONC 33.4 g/dL (32.0-36.0); Mean Corpuscular Hemoglobin 31.8 pg (27.0-31.0); Mean Corpuscular Volume 95.3 fL (78.0-98.0); Mean Platelet Volume 8.6 fL (7.4-10.4); Platelet Count 216 thou/uL (130-400); Red Blood Cell (RBC) Count 4.33 mill/uL (4.20-5.40); White Blood Cell (WBC) Count 6.4 thou/uL (4.8-10.8)
[2019-07-13] MEDS ORDERED: methylPREDNISolone Sod Succ/PF 125 MG/2 ML VIAL ONE (13:50)
[2019-07-13] MEDS ORDERED: diphenhydrAMINE 50 MG/ML VIAL ONE (13:50)
[2019-07-13 13:58] LABS: ALT (SGPT) 75 U/L (8-55); AST (SGOT) 44 U/L (5-34); Albumin 4.3 g/dL (3.5-5.0); Alkaline Phosphatase 102 U/L (40-150); Anion Gap 12 mmol/L (10-20); BUN (Urea Nitrogen) 17 mg/dL (7.0-18.7); Bilirubin, Total 0.7 mg/dL (0.2-1.2); Calc. Creatinine Clearance 0 mL/min (70-130); Carbon Dioxide 21 mmol/L (22-29); Chloride 111 mmol/L (98-107); Estimated GFR-MDRD 84; Globulin 2.9 g/dL (2.4-3.5); Potassium 3.7 mmol/L (3.5-5.1); Protein, Total 7.2 g/dL (6.0-8.3); Sodium 140 mmol/L (136-145)
[2019-07-13] MEDS ORDERED: Thiamine HCl 200 MG/2 ML VIAL SLOW IVP SCH (14:00)
[2019-07-13 14:08] LABS: Glucose 51 mg/dL (70-105)
[2019-07-13] MEDS ORDERED: Dextrose 50% Abboject 50 ML SYRINGE ONE (14:23)
[2019-07-13] MEDS ORDERED: Famotidine/PF 20 mg/2ml Vial ONE (14:23)
--- NOTE | 2019-07-13 14:51 | CT ---
CT ABDOMEN AND PELVIS WITH IV CONTRAST 07/13/2019 CLINICAL INFORMATION: 4 day history of nausea, vomiting, and diarrhea. History of prior gastric sleeve procedure one year a go. Diffuse abdominal pain 2 days ago which is now resolved. COMPARISON: 04/27/2019 Technique: Multiple contiguous axial CT images are obtained through the abdomen and pelvis with IV contrast. Cor onal reformatted images are provided. FINDINGS: Lower Chest: Lung bases are clear. Vessels: Minimal scattered vascular calcifications. Abdomen: Portal vein:Patent Gallbladder: Postcholecystectomy changes again present. Liver: Scattered hepatic granulomata. Spleen: Splenic granulomata. Pancreas: within normal limits. Adrenals: within normal limits. Kidneys: within normal limits. Bowel: Postsurgical changes suggesting gastric bypass procedure are noted. Small amount of fluid is s een within the remnant stomach. No dilated loops of small bowel are appreciated. There is a focal area of thickening in the region of the hepatic flexure of the colon. This is probab ly related to peristalsis and decompressed loop of bowel. However, a lesion in this region cannot be entirely excluded. This would be better evaluated with colonoscopy. Appendix: Not definitely visualized, but there are no secondary signs seen to suggest appendicitis. Peritoneum: No ascites or free air; no fluid collection. Mesentery and Retroperitoneum: No enlarged mesenteric or retroperitoneal lymph nodes. Abdominal Wall: within normal limits. Pelvis: Reproductive Organs: Evidence of hysterectomy. Pelvis within normal limits. Bladder: Mostly decompressed but otherwise grossly within normal limits. Bones: Mild degenerative changes in the spine. No suspicious lytic or sclerotic osseous lesions are s een. IMPRESSION: . Focal area of wall thickening within the hepatic flexure. This is likely attributable to peristalsi s and incomplete distention of the colon in this region, but a colonic lesion/mass cannot be entirely excluded. This would be better evaluated with colonoscopy. 2. Postsurgical changes related to gastric bypass procedure. There is fluid seen in a mildly distende d gastric remnant. 3. Postcholecystectomy changes and hysterectomy.
[2019-07-13] MEDS ORDERED: Iopamidol 370 76% 50 ML VIAL FS ONE (15:46)
[2019-07-13] MEDS ORDERED: ISOVUE-370 76%-LOCM 1 ML ONE (15:46)
[2019-07-13 16:11] LABS: Bacteria/HPF None Seen HPF (None Seen); Bilirubin Negative (Negative); Blood, Urine 1+ (Negative); Clarity Clear (Clear); Glucose, Urine (Dipstick) Normal (Negative); Leukocyte Negative Leu/uL (Negative); Nitrite Negative (Negative); Protein, Urine (Dipstick) Negative (Neg-Trace); Squamous Epithelial 0-3 HPF (0-3); Urobilinogen Normal mg/dL (Less than 2); WBC/HPF 0-3 HPF (0-3)
== END 2019-07-13 18:00 | disposition home or self-care (01) ==
LOC: ERS 12:57
DX: E16.2 Hypoglycemia, unspecified (principal); R11.2 Nausea with vomiting, unspecified; R19.7 Diarrhea, unspecified; G43.909 Migraine, unspecified, not intractable, without status migrainosus; M19.90 Unspecified osteoarthritis, unspecified site; I50.30 Unspecified diastolic (congestive) heart failure; F31.81 Bipolar II disorder; Z79.899 Other long term (current) drug therapy
CPT/HCPCS: 36415; 36416; 74177; 80053; 81003; 81015; 83690; 85025; 96361; 96374; 96375; J1200; J2405; J2930; J3411; S0028